=== PATIENT | female | born 1985 | race Caucasian/White ===

== ENCOUNTER 2017-04-13 18:37 | Emergency (ER) | payer SELFPAY ==
[2017-04-13] MEDS ORDERED: Sodium Chloride 0.9% 2.5 ML Syringe FLUSH PRN (18:45)
[2017-04-13] MEDS ORDERED: Sodium Chloride 0.9% 10 ML Syringe FLUSH PRN (18:45)
--- NOTE | 2017-04-13 18:46 | EDM.PDOC ---
ED HPI GENERAL MEDICAL PROBLEM - General Chief Complaint: Respiratory Problem Stated Complaint: PT HAS SINUS INFECTION Time Seen by Provider: 04/13/17 18:43 Source of Information: Reports: Patient History Limitations: Reports: No Limitations - History of Present Illness INITIAL COMMENTS - FREE TEXT/NARRATIVE: HISTORY AND PHYSICAL: []31-year-old female presenting with difficulty breathing History of Present Illness: [] had a cold and she just cannot shake hers Coughing has been sick for 3 days Review of Systems: As per history of present illness and below otherwise all systems reviewed and negative. Past medical history: As per history of present illness and as reviewed below otherwise noncontributory. Surgical history: As per history of present illness and as reviewed below otherwise noncontributory. Social history: No reported history of drug or alcohol abuse. Family history: As per history of present illness and as reviewed below otherwise noncontributory. Physical exam: Alert and oriented female answering questions in 2-3 words HEENT: Atraumatic, normocehpalic, pupils reactive, negative for conjunctival pallor or scleral icterus, mucous membranes moist, throat clear, neck supple, nontender, trachea midline. Chest was tenderness to the maxillary sinus area tympanic membranes dull pharynx is quite erythematous Lungs: Clear to auscultation, breath sounds equal bilaterally, chest non tender. Heart: S1S2, regular, negative for clicks, rubs, or JVD. Abdomen: Soft, nondistended, nontender. Negative for masses or hepatossplenmegaly. Negative for costovertebral tenderness. Pelvis: Stable nontender. Genitourinary: Deferred. Rectal: Deferred Extremities: Atraumatic, negative for cords or calf pain. Neurovascular unremarkable. Neuro: Awake, alert, oriented. Cranial nerves II through XII unremarkable. Cerebellum unremarkable. Motor and sensory unremarkable throughout. Exam nonfocal. Diagnostics: [Chest x-ray CBC CMP EKG]no pneumonia or infiltrate Therapeutics: [zofran] Impression: [Acute sinusitis] Plan: []Home Zofran ODT 4 mg 1 tablet 3 times a day as needed for nausea Amoxicillin 500 mg 3 times a day 10 days Follow-up with your primary care provider Small sips of fluids every 20 minutes to keep hydrated while awake Definitive disposition and diagnosis as appropriate pending reevaluation and review of above. Onset: Gradual Duration: Day(s): (3), Getting Worse Location: Reports: Chest chest Pain Score (Numeric/FACES): 3 - Related Data Allergies Allergy/AdvReac Type Severity Reaction Status Date / Time No Known Allergies Allergy Verified 04/13/17 18:53 Home Meds: Home Meds Amoxicillin 500 mg PO TID #30 tab 04/13/17 [Rx] Ondansetron [Zofran ODT] 4 mg PO Q8H #12 tab.dis 04/13/17 [Rx] Past Medical History [employer] History: Reports: Psychiatric History: Reports: Depression, Suicide Attempt Other Psychiatric History: attempted suicide 2008 - Infectious Disease History Infectious Disease History: Reports: Chicken Pox - Past Surgical History Female Surgical History: Reports: Tubal Ligation Musculoskeletal Surgical History: Reports: Other (See Below) Social & Family History - Family History Cardiac: Reports: Heart Murmur, Other (See Below) Other Cardiac Family History: mother heart murmer Musculoskeletal: Reports: Other (See Below) Other Musculoskeletal Family History: knee replacement- mother Neurological: Reports: Seizure Oncologic: Reports: Prostate, Other (See Below) Other Oncologic Family History: prostate and skin CA - Father - Tobacco Use Smoking Status *Q: Current Every Day Smoker Years of Tobacco use: 15 Packs/Tins Daily: 0.2 Used Tobacco, but Quit: No Second Hand Smoke Exposure: Yes - Caffeine Use Caffeine Use: Reports: Coffee - Recreational Drug Use Recreational Drug Use: No Drug Use in Last 12 Months: No Recreational Drug Use Frequency: Not Used In Over 1 Year ED ROS GENERAL - Review of Systems Review Of Systems: ROS reveals no pertinent complaints other than HPI. ED EXAM, GENERAL - Physical Exam Exam: See Below (See dictation) Course - Vital Signs Last Recorded V/S: Last Vital Signs Temp 36.8 C 04/13/17 18:54 Pulse 89 04/13/17 18:54 Resp 20 04/13/17 18:54 BP 140/69 04/13/17 18:54 Pulse Ox 99 04/13/17 18:54 - Orders/Labs/Meds Orders: Active Orders 24 hr Category Date Time Status EKG Documentation Completion [RC] STAT Care 04/13/17 18:45 Active Chest 2V [CR] Stat Exams 04/13/17 18:45 Taken Ondansetron [Zofran ODT] Med 04/13/17 19:47 Once 4 mg PO ONETIME ONE Sodium Chloride 0.9% [Saline Flush] Med 04/13/17 18:45 Active 10 ml FLUSH ASDIRECTED PRN Sodium Chloride 0.9% [Saline Flush] Med 04/13/17 18:45 Active 2.5 ml FLUSH ASDIRECTED PRN Medication Orders Ondansetron HCl (Zofran Odt) 4 mg PO ONETIME ONE Stop: 04/13/17 19:48 Sodium Chloride (Saline Flush) 10 ml FLUSH ASDIRECTED PRN PRN Reason: Keep Vein Open Sodium Chloride (Saline Flush) 2.5 ml FLUSH ASDIRECTED PRN PRN Reason: Keep Vein Open Labs: Laboratory Tests 04/13/17 04/13/17 Range/Units 18:55 18:55 WBC 13.08 H (4.0-11.0) K/uL RBC 5.06 (4.30-5.90) M/uL Hgb 14.9 (12.0-16.0) g/dL Hct 44.1 (36.0-46.0) % MCV 87.2 (80.0-98.0) fL MCH 29.4 (27.0-32.0) pg MCHC 33.8 (31.0-37.0) g/dL RDW Std Deviation 43.3 (28.0-62.0) fl RDW Coeff of Madalyn 14 (11.0-15.0) % Plt Count 235 (150-400) K/uL MPV 11.90 (7.40-12.00) fL Neut % (Auto) 56.8 (48.0-80.0) % Lymph % (Auto) 35.3 (16.0-40.0) % [place] % (Auto) 5.0 (0.0-15.0) % Eos % (Auto) 2.4 (0.0-7.0) % Baso % (Auto) 0.5 (0.0-1.5) % Neut # (Auto) 7.4 H (1.4-5.7) K/uL Lymph # (Auto) 4.6 H (0.6-2.4) K/uL [place] # (Auto) 0.7 (0.0-0.8) K/uL Eos # (Auto) 0.3 (0.0-0.7) K/uL Baso # (Auto) 0.1 (0.0-0.1) K/uL Nucleated RBC % 0.0 /100WBC Nucleated RBCs # 0 K/uL Sodium 140 (136-146) mmol/L Potassium 3.5 (3.5-5.1) mmol/L Chloride 109 (98-110) mmol/L Carbon Dioxide 17 L (21-31) mmol/L BUN 5 L (6.0-23.0) mg/dL Creatinine 1.0 (0.6-1.5) mg/dL Est Cr Clr Drug Dosing TNP Estimated GFR (MDRD) > 60.0 ml/min Glucose 95 (60-110) mg/dL Calcium 9.9 (8.8-10.8) mg/dL Total Bilirubin 1.0 (0.1-1.5) mg/dL AST 178 H (5-40) IU/L ALT 151 H (8-54) IU/L Alkaline Phosphatase 127 (40-150) Total Protein 8.2 H (6.0-8.0) g/dL Albumin 4.4 (3.5-5.0) g/dL Globulin 3.8 H (2.0-3.5) g/dL Albumin/Globulin Ratio 1.2 L (1.3-2.8) Meds: Medications Generic Name Dose Route Start Last Admin Trade Name Freq PRN Reason Stop Dose Admin Ondansetron HCl 4 mg 04/13/17 19:47 Zofran Odt PO 04/13/17 19:48 ONETIME ONE Sodium Chloride 10 ml 04/13/17 18:45 Saline Flush FLUSH ASDIRECTED PRN Keep Vein Open Sodium Chloride 2.5 ml 04/13/17 18:45 Saline Flush FLUSH ASDIRECTED PRN Keep Vein Open Departure - Departure Time of Disposition: 19:50 Disposition: Home, Self-Care 01 Condition: Good Clinical Impression: Cough Acute sinusitis Qualifiers: Sinusitis location: maxillary Recurrence: not specified as recurrent Qualified Code(s): J01.00 - Acute maxillary sinusitis, unspecified Upper respiratory tract infection Qualifiers: URI type: acute pharyngitis - Discharge Information Prescriptions: Amoxicillin 500 mg PO TID #30 tab Ondansetron [Zofran ODT] 4 mg PO Q8H #12 tab.dis Forms: ED Department Discharge Additional Instructions: The following information is given to patients seen in the emergency department who are being discharged to home. This information is to outline your options for follow-up care. We provide all patients seen in our emergency department with a follow-up referral. The need for follow-up, as well as the timing and circumstances, are variable depending upon the specifics of your emergency department visit. If you don't have a primary care physician on staff, we will provide you with a referral. We always advise you to contact your personal physician following an emergency department visit to inform them of the circumstance of the visit and for follow-up with them and/or the need for any referrals to a consulting specialist. The emergency department will also refer you to a specialist when appropriate. This referral assures that you have the opportunity for followup care with a specialist. All of these measure are taken in an effort to provide you with optimal care, which includes your followup. Under all circumstances we always encourage you to contact your private physician who remains a resource for coordinating your care. When calling for followup care, please make the office aware that this follow-up is from your recent emergency room visit. If for any reason you are refused follow-up, please contact the [facility] emergency department at and asked to speak to the emergency department charge nurse. Prescription for Zofran ODT 4 mg one 3 times a day when necessary nausea Amoxicillin 500 mg tablet one 3 times a day 10 days Follow up with your primary care provider - My Orders Last 24 Hours: My Active Orders 04/13/17 18:45 EKG Documentation Completion [RC] STAT Chest 2V [CR] Stat Sodium Chloride 0.9% [Saline Flush] 10 ml FLUSH ASDIRECTED PRN Sodium Chloride 0.9% [Saline Flush] 2.5 ml FLUSH ASDIRECTED PRN 04/13/17 19:47 Ondansetron [Zofran ODT] 4 mg PO ONETIME ONE - Assessment/Plan Last 24 Hours: My Active Orders 04/13/17 18:45 EKG Documentation Completion [RC] STAT Chest 2V [CR] Stat Sodium Chloride 0.9% [Saline Flush] 10 ml FLUSH ASDIRECTED PRN Sodium Chloride 0.9% [Saline Flush] 2.5 ml FLUSH ASDIRECTED PRN 04/13/17 19:47 Ondansetron [Zofran ODT] 4 mg PO ONETIME ONE
[2017-04-13 19:43] LABS: CHLORIDE,CL 109 mmol/L (98-110); SODIUM,NA 140 mmol/L (136-146)
[2017-04-13] MEDS ORDERED: Ondansetron 4 MG Tab.DIS PO ONE (19:47)
[2017-04-13 20:13] VITALS: BP 129/65
--- NOTE | 2017-04-14 09:13 | CR ---
EXAM DATE: 04/13/17 PATIENT'S AGE: 31 Patient: KAREN RESTREPO Facility: [place], [place] Site . Site : 1985 Study: XRay Chest [id number]/26/2017 7:20:43 PM Ordering Physician: Doctor Brower Final Report: INDICATION: Shortness of breath, weakness and fatigue TECHNIQUE: Chest 2 views. COMPARISON: None FINDINGS: Cardiovascular and mediastinum: Heart size is normal. Pulmonary vasculature is normal. Mediastinum is within normal limits. Lungs and pleural spaces: Lungs are clear. No sign of pleural effusion. No pneumothorax. Bones and soft tissues: No acute findings. There appear to be surgical clips in the upper abdomen. IMPRESSION: No acute pulmonary process. Dictated by Pedro Courtney MD @ 04/13/2017 7:42:01 PM Dictated by: Pedro Courtney MD @ 04/13/2017 19:42:05 (Electronic Signature) Report Signed by Proxy. [email or web address]
== END 2017-04-13 20:13 | disposition home or self-care (01) ==
LOC: MW.ED 18:37
DX: J02.9 Acute pharyngitis, unspecified (principal); J01.00 Acute maxillary sinusitis, unspecified; F17.210 Nicotine dependence, cigarettes, uncomplicated; Z98.51 Tubal ligation status
CPT/HCPCS: 36415; 71020; 80053; 85025; 93005; 99285; A9270; 99283